=== PATIENT | female | born 1975 | race African-American/Black ===

== ENCOUNTER 2020-03-29 18:33 | Observation (INO) | payer OTHER ==
[2020-03-29 18:59] LABS: Absolute Lymphocytes (CBC) 2.6 K/uL (0.7-4.9); Basophils % 1.3 % (0-1.3); Hematocrit 39.5 % (36.0-45.0); MPV 8.1 fL (7.6-11.3); RBC Red Blood Cell Count 4.59 M/uL (3.86-4.86)
[2020-03-29 19:04] LABS: Protime INR 0.99
--- NOTE | 2020-03-29 19:04 | RAD REPORT ---
EXAM DESCRIPTION: CT - Ct Stroke Brain Wo Cont - 03/29/2020 6:54 pm CLINICAL HISTORY: Confused;Syncope Headache, drowsiness, CVA symptomology COMPARISON: No comparisons TECHNIQUE: All CT scans are performed using dose optimization technique as appropriate and may inclu de automated exposure control or mA/KV adjustment according to patient size. FINDINGS: No intracranial hemorrhage, hydrocephalus or extra-axial fluid collection.No areas of brai n edema or evidence of midline shift. The paranasal sinuses and mastoids are clear. The calvarium is intact. IMPRESSION: No acute intracranial abnormality. The findings were discussed with Rebecca in the ER On 03/29/2020 at 6:58 p.m. by telephone.
--- NOTE | 2020-03-29 19:09 | RAD REPORT ---
EXAM DESCRIPTION: RAD - Chest Single View - 03/29/2020 7:01 pm CLINICAL HISTORY: CHEST PAIN Chest pain. COMPARISON: No comparisons FINDINGS: Portable technique limits examination quality. Bilateral interstitial prominence is present which could indicate interstitial pneumonitis/bronchitis . The heart is normal in size. No displaced fractures.
[2020-03-29 19:11] LABS: Potassium 3.3 mmol/L (3.5-5.1)
[2020-03-29] MEDS ORDERED: LABETALOL HCL 100 MG/20 ML ONE (19:13)
[2020-03-29] MEDS ORDERED: THIAMINE 200 MG/2 ML INJ ONE (19:13)
[2020-03-29] MEDS ORDERED: FOLIC ACID 5 MG/ML VIAL ONE (19:14)
[2020-03-29] MEDS ORDERED: NA CHLORIDE 0.9% 1,000 ML ONE (19:14)
--- NOTE | 2020-03-29 20:04 | RAD REPORT ---
EXAM DESCRIPTION: CT - Head angio - 03/29/2020 7:52 pm CLINICAL HISTORY: Headache;Syncope Headache, drowsiness, CVA COMPARISON: Ct Stroke Brain Wo Cont dated 03/29/2020 TECHNIQUE: CT angiography of the head was performed with MIPs. All CT scans are performed using dose optimization technique as appropriate and may include automated exposure control or mA/KV adjustment according to patient size. FINDINGS: No evidence of aneurysm is detected. No flow-limiting stenosis or vascular malformation id entified. Antegrade flow is seen in the vertebral arteries. The vertebral arteries are codominant. The visualized dural venous sinuses are patent. IMPRESSION: No significant flow abnormality is detected.
--- NOTE | 2020-03-29 20:27 | ER ---
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 Upon arrival pt was unresponsive in passenger seat, diaphoretic, eyes rolling back in her head. Hx of breast CA/. 18:35 Coronavirus screen: At this time, the client does not indicate any symptoms associated ss with coronavirus-19. Ebola Screen: No symptoms or risks identified at this time. Risk Assessment: Do you want to hurt yourself or someone else? Unable to obtain. Onset of symptoms was March 29, 2020. 18:35 Method Of Arrival: Carried ss 18:38 Acuity: JAYDEN 1 ll1 19:01 Initial Sepsis Screen: Does the patient meet any 2 criteria? Altered Mental Status. No. ss Patient's initial sepsis screen is negative. Does the patient have a suspected source of infection? No. Patient's initial sepsis screen is negative. Historical: - Allergies: 18:57 Dilaudid; ss 18:57 Heparin; ss - PMHx: 18:57 BREAST CA; SARCOIDOSIS; Hypertension; ss - Immunization history:: Adult Immunizations up to date. - Family history:: not pertinent. - Social history:: Smoking status: Patient denies any tobacco usage or history of. Screenin:00 Abuse screen: Denies threats or abuse. Denies injuries from another. Nutritional ss screening: No deficits noted. Tuberculosis screening: No symptoms or risk factors identified. Fall Risk Total Madsen Fall Scale indicates High Risk Score (45 or more points). Fall prevention measures have been instituted. Side Rails Up X 2 Frequent Obs/Assessments Occuring Family Present and informed to notify staff if the need to leave the bedside As available patient and family educated on Fall Prevention Program and Strategies. Assessment: 18:33 Reassessment: DR RODRIGUEZ AT BEDSIDE. ss 18:37 Reassessment: CODE STROKE CALLED, PT TO CT WANDER PALACIOS RN. ss 19:05 General: Appears ill, Behavior is drowsy. Pain: Complains of pain in head Pain ll1 currently is 9 out of 10 on a pain scale. Quality of pain is described as aching, throbbing, Pain began 1 day ago. Neuro: Level of Consciousness is awake, alert, obeys commands, Oriented to person, place, time, situation, Appropriate for age E Learning Manager are weak bilaterally Moves all extremities. Full function Gait is unsteady, Speech is normal, Reports headache a syncopal episode. Cardiovascular: Heart tones S1 S2 Capillary refill < 3 seconds Clubbing of nail beds is absent Patient's skin is warm and dry. Rhythm is regular. Respiratory: No deficits noted. GI: No deficits noted. Vital Signs: 18:37 BP 170 / 113; Pulse 74; Resp 14; Pulse Ox 93% on R/A; ss 18:55 BP 113 / 91; Pulse 79; Resp 16; Pulse Ox 92% on R/A; ss 19:30 BP 108 / 87; Pulse 89; Resp 18; Pulse Ox 100% on R/A; rv 20:30 BP 110 / 83; Pulse 84; Resp 17; Pulse Ox 100% on R/A; rv 21:30 BP 117 / 86; Pulse 93; Resp 18; Pulse Ox 100% ; rv Hollywood Coma Score: 18:46 Eye Response: spontaneous(4). Verbal Response: oriented(5). Motor Response: obeys antonio commands(6). Total: 15. NIH Stroke Scale Scores: 18:42 NIHSS Score: 0 antonio ED Course: 18:33 Patient arrived in ED. ds1 18:36 Inserted saline lock: 18 gauge in right EJ, using aseptic technique. ,using aseptic ss technique. BY DR RODRIGUEZ Blood collected. 18:38 Triage completed. ll1 18:39 Juan José Rodriguez MD is Attending Physician. antonio 18:54 CT Stroke Brain w/o Contrast In Process Unspecified. EDMS 18:56 Arm band placed on. ss 19:00 Patient has correct armband on for positive identification. Placed in gown. Bed in low ss position. Call light in reach. Side rails up X2. print operator on. Pulse ox on. NIBP on. 19:01 Stroke CXR 1 View In Process Unspecified. EDMS 19:39 Inserted saline lock: 20 gauge in left antecubital area, using aseptic technique. oe 19:52 CT Head Angio In Process Unspecified. EDMS 20:24 Angel Bee MD is Hospitalizing Provider. antonio 21:25 Ultrasound completed. Patient tolerated well. Notified SEPTIC TANK CLEANER/PA evelyn. sg3 21:28 Peewee Bocanegra, RN is Primary Nurse. rv 21:46 No provider procedures requiring assistance completed. IV is patent, with fluids rv infusing freely, with good blood return. 21:47 Patient admitted, IV remains in place. rv Administered Medications: 19:10 Drug: NS 0.9% 1000 ml Route: IV; Rate: 125 ml/hr; Site: right jugular; ll1 22:00 Follow up: IV Status: Infusion continued upon admission rv 19:10 Drug: foLIC Acid 1 mg Route: IVPB; Site: right jugular; ll1 22:00 Follow up: IV Status: Infusion continued upon admission rv 19:10 Drug: Thiamine 100 mg Route: IV; Rate: bolus; Site: right jugular; ll1 22:00 Follow up: IV Status: Infusion continued upon admission rv 19:10 Not Given (BP 108/87, HR 88): Trandate 20 mg IVP once; Over 2 minutes ll1 21:28 Drug: TORadol 30 mg Route: IVP; Site: right jugular; rv 22:00 Follow up: Response: No adverse reaction rv 21:29 Drug: Benadryl 50 mg Route: IVP; Site: right jugular; rv 22:00 Follow up: Response: No adverse reaction rv 21:29 Drug: Reglan 10 mg Route: IVP; Site: right jugular; rv 22:00 Follow up: Response: No adverse reaction rv 22:56 Not Given (NORMAL BLOOD PRESSURE): Norvasc 5 mg PO once rv Point of Care Testing: Blood Glucose: 18:37 Blood Glucose: 98 mg/dL; ss Ranges: Outcome: 20:26 Decision to Hospitalize by Provider. antonio 21:46 Admitted to Med/surg accompanied by tech, via stretcher, room 211, with chart, Report rv called to EVITA BURGOS 21:46 Condition: good 21:46 Instructed on the need for admit. 23:02 Patient left the ED. rv NIH Stroke Scale - NIH Stroke Score Date: 03/29/2020 Time: 18:42 Total Score = 0 1a. Level of Consciousness (LOC) - 0(Alert) 1b. Level of Consciousness (LOC) (Year \T\ Age) - 0(Both) 1c. LOC Commands (Open \T\ Closes Eyes/Certification Engineer) - 0(Both) 2. Best Gaze (Lateral Gaze Paresis) - 0(Normal) 3. Visual Field Loss - 0(No visual loss) 4. Facial Palsy - 0(Normal) 5a. Left Arm: Motor (10-second hold) - 0(No drift) 5b. Right Arm: Motor (10-second hold) - 0(No drift) 6a. Left Leg: Motor (5-second hold - always test supine) - 0(No drift) 6b. Right Leg: Motor (5-second hold - always test supine) - 0(No drift) 7. Limb Ataxia (finger/nose \T\ heel/valderrama - test with eyes open) - 0(Absent) 8. Sensory Loss (pinprick arms/legs/face) - 0(Normal) 9. Best Language: Aphasia (description/naming/reading) - 0(No aphasia) 10. Dysarthria (speech clarity - read or repeat words) - 0(Normal) 11. Extinction and Inattention (visual/tactile/auditory/spatial/personal) - 0(No abnormality) Initials: [facility] Signatures: Dispatcher [employer] EDJuan José Cardona MD MD cha Sanford, Demi ds1 Lois Osuna, AUBREY RN Maxi Spicer Sarah sg3 Peewee Bocanegra RN RN rv Lewis, Lynsay RN RN ll1 Corrections: (The following items were deleted from the chart) 18:55 18:54 Reassessment: CODE STROKE CALLED, PT TO CT WANDER PALACIOS RN [facility] 18:56 18:38 Inserted saline lock: 18 gauge in right EJ, using aseptic technique. ss ,using aseptic technique. BY DR RODRIGUEZ Blood collected.
--- NOTE | 2020-03-29 20:27 | EDPHYS ---
Physician Documentation [facility] Name: Haile Hale Age: 44 yrs Sex: Female : 1975 Arrival Date: 03/29/2020 Time: 18:33 Bed 4 Private MD: ED Physician Juan José Joyce HPI: 03/29 18:41 This 44 yrs old Black Female presents to ER via Unassigned with complaints of Syncope. antonio 18:41 The patient has experienced syncope, became unresponsive, collapsed. Onset: The antonio symptoms/episode began/occurred just prior to arrival. Duration: This was a single episode, that lasted 5 minute(s). Context: the episode(s) was witnessed, by family, . Associated injury: The patient did not suffer any apparent associated injury. Associated signs and symptoms: The patient has no apparent associated signs or symptoms. Current symptoms: decreased level of consciousness, is sleeping but easy to arouse. The patient has not experienced similar symptoms in the past. 18:42 The patient complains of pain to the top of head, forehead, left frontal area, left antonio side of the back of head, right frontal area and right side of the back of head. The patient describes the headache as constant. Onset: The symptoms/episode began/occurred just prior to arrival. ching that came on and got worse, then syncope, hx breast cancer and htn. Severity of symptoms: At its worst the pain was moderate, in the emergency department the pain is unchanged. Historical: - Allergies: 18:57 Dilaudid; ss 18:57 Heparin; ss - PMHx: 18:57 BREAST CA; SARCOIDOSIS; Hypertension; ss - Immunization history:: Adult Immunizations up to date. - Family history:: not pertinent. - Social history:: Smoking status: Patient denies any tobacco usage or history of. ROS: 18:42 Constitutional: Negative for fever, chills, and weight loss, Eyes: Negative for injury, antonio pain, redness, and discharge, ENT: Negative for injury, pain, and discharge, Neck: Negative for injury, pain, and swelling, Cardiovascular: Negative for chest pain, palpitations, and edema, Respiratory: Negative for shortness of breath, cough, wheezing, and pleuritic chest pain, Abdomen/GI: Negative for abdominal pain, nausea, vomiting, diarrhea, and constipation, Back: Negative for injury and pain, : Negative for injury, bleeding, discharge, and swelling, MS/Extremity: Negative for injury and deformity, Psych: Negative for depression, anxiety, suicide ideation, homicidal ideation, and hallucinations, Allergy/Immunology: Negative for hives, rash, and allergies, Endocrine: Negative for neck swelling, polydipsia, polyuria, polyphagia, and marked weight changes, Hematologic/Lymphatic: Negative for swollen nodes, abnormal bleeding, and unusual bruising. 18:42 Skin: Positive for diaphoresis. 18:42 Neuro: Positive for headache, syncope. Exam: 18:42 Constitutional: This is a well developed, well nourished patient who is awake, alert, antonio and in no acute distress. Head/Face: Normocephalic, atraumatic. Eyes: Pupils equal round and reactive to light, extra-ocular motions intact. Lids and lashes normal. Conjunctiva and sclera are non-icteric and not injected. Cornea within normal limits. Periorbital areas with no swelling, redness, or edema. ENT: Nares patent. No nasal discharge, no septal abnormalities noted. Tympanic membranes are normal and external auditory canals are clear. Oropharynx with no redness, swelling, or masses, exudates, or evidence of obstruction, uvula midline. Mucous membranes moist. Neck: Trachea midline, no thyromegaly or masses palpated, and no cervical lymphadenopathy. Supple, full range of motion without nuchal rigidity, or vertebral point tenderness. No Meningismus. Chest/axilla: Normal chest wall appearance and motion. Nontender with no deformity. No lesions are appreciated. Cardiovascular: Regular rate and rhythm with a normal S1 and S2. No gallops, murmurs, or rubs. Normal PMI, no JVD. No pulse deficits. Respiratory: Lungs have equal breath sounds bilaterally, clear to auscultation and percussion. No rales, rhonchi or wheezes noted. No increased work of breathing, no retractions or nasal flaring. Abdomen/GI: Soft, non-tender, with normal bowel sounds. No distension or tympany. No guarding or rebound. No evidence of tenderness throughout. Back: No spinal tenderness. No costovertebral tenderness. Full range of motion. Skin: Warm, dry with normal turgor. Normal color with no rashes, no lesions, and no evidence of cellulitis. MS/ Extremity: Pulses equal, no cyanosis. Neurovascular intact. Full, normal range of motion. Psych: Awake, alert, with orientation to person, place and time. Behavior, mood, and affect are within normal limits. 18:42 Neuro: Orientation: is normal, appropriate for stated age, no acute changes, Mentation: slow to respond, Memory: unable to test, Cranial nerves: grossly normal, is grossly normal based on the patient's age, no acute changes, Cerebellar function: is grossly normal, is grossly normal based on the patient's age, no acute changes, Motor: is grossly normal based on the patient's age, no acute changes, moves all fours, Sensation: no obvious gross deficits, appropriate no acute changes, Gait: not tested. seizure activity, is not displayed by the patient. 18:49 ECG was reviewed by the Attending Physician. [facility] Vital Signs: 18:37 BP 170 / 113; Pulse 74; Resp 14; Pulse Ox 93% on R/A; ss 18:55 BP 113 / 91; Pulse 79; Resp 16; Pulse Ox 92% on R/A; ss 19:30 BP 108 / 87; Pulse 89; Resp 18; Pulse Ox 100% on R/A; rv 20:30 BP 110 / 83; Pulse 84; Resp 17; Pulse Ox 100% on R/A; rv 21:30 BP 117 / 86; Pulse 93; Resp 18; Pulse Ox 100% ; rv NIH Stroke Scale Scores: 18:42 NIHSS Score: 0 antonio Ellis Coma Score: 18:46 Eye Response: spontaneous(4). Verbal Response: oriented(5). Motor Response: obeys [facility] commands(6). Total: 15. MDM: 18:46 Differential diagnosis: cluster headache, epidural hematoma, hyponatremia, antonio intracerebral hemorrhage, migraine, neoplasm, subarachnoid bleed, subdural hematoma, temporal arteritis, tension headache, traumatic injuries, trigeminal neuralgia. Differential Diagnosis altered mental status, sepsis. Differential Diagnosis: cardiac arrhythmia, idiopathic syncope, pseudo seizure, vasovagal episode. Data reviewed: vital signs, nurses notes, lab test result(s), EKG, radiologic studies. Data interpreted: monitor technician: rate is 77 beats/min, rhythm is regular, Pulse oximetry: on room air is 100 %. Test interpretation: by ED physician or midlevel provider: ECG, plain radiologic studies. Counseling: I had a detailed discussion with the patient and/or guardian regarding: the historical points, exam findings, and any diagnostic results supporting the discharge/admit diagnosis, the presence of at least one elevated blood pressure reading (>120/80) during this emergency department visit, lab results, radiology results, the need to transfer to another facility, for higher level of care, [facility] does not immediately have the required specialist. 18:49 Patient medically screened. [facility] 20:21 ED course: pain improved, nih 0,varun ramírez, obs , will see in the am. [facility] 20:29 Physician consultation: Samir Ramírez MD and will see patient in inpatient room, no antonio further test per desiree. 03/29 18:44 Order name: Basic Metabolic Panel; Complete Time: 20:12 03/29 18:44 Order name: CBC with Diff; Complete Time: 20:12 03/29 18:44 Order name: Protime (+inr); Complete Time: 20:12 03/29 18:44 Order name: Ptt, Activated; Complete Time: 20:12 03/29 18:44 Order name: CT Stroke Brain w/o Contrast; Complete Time: 20:12 03/29 18:44 Order name: Stroke CXR 1 View; Complete Time: 20:12 03/29 18:57 Order name: CT Head Angio; Complete Time: 20:12 [facility] 03/29 20:27 Order name: Sed Rate [facility] 03/29 18:39 Order name: Accucheck; Complete Time: 19:00 [facility] 03/29 18:39 Order name: Cardiac monitoring; Complete Time: 19:00 [facility] 03/29 18:39 Order name: EKG - Nurse/Tech; Complete Time: 19:00 [facility] 03/29 18:44 Order name: EKG; Complete Time: 18:45 03/29 20:27 Order name: US Carotid Artery Bilateral [facility] 03/29 20:31 Order name: CONS Physician Consult [facility] 03/29 21:32 Order name: US [facility] 03/29 18:39 Order name: IV Saline Lock; Complete Time: 18:53 [facility] 03/29 18:39 Order name: Labs collected and sent; Complete Time: 18:53 [facility] 03/29 18:39 Order name: NPO; Complete Time: 19:00 [facility] 03/29 18:39 Order name: O2 Per Protocol; Complete Time: 19:00 [facility] 03/29 18:39 Order name: O2 Sat Monitoring; Complete Time: 19:00 [facility] 03/29 18:39 Order name: Stroke Swallow Screen; Complete Time: 21:29 [facility] 03/29 18:41 Order name: Seizure Precautions; Complete Time: 21:29 antonio 03/29 20:21 Order name: Oxygen; Complete Time: 21:29 antonio EC:49 Rate is 77 beats/min. Rhythm is regular. QRS [place] is Normal. OH interval is normal. QRS antonio interval is normal. QT interval is normal. No Q waves. T waves are Normal. No ST changes noted. Clinical impression: LVH and No evidence of ischemia. Interpreted by me. Reviewed by me. Administered Medications: 19:10 Drug: NS 0.9% 1000 ml Route: IV; Rate: 125 ml/hr; Site: right jugular; ll1 22:00 Follow up: IV Status: Infusion continued upon admission rv 19:10 Drug: foLIC Acid 1 mg Route: IVPB; Site: right jugular; ll1 22:00 Follow up: IV Status: Infusion continued upon admission rv 19:10 Drug: Thiamine 100 mg Route: IV; Rate: bolus; Site: right jugular; ll1 22:00 Follow up: IV Status: Infusion continued upon admission rv 19:10 Not Given (BP 108/87, HR 88): Trandate 20 mg IVP once; Over 2 minutes ll1 21:28 Drug: TORadol 30 mg Route: IVP; Site: right jugular; rv 22:00 Follow up: Response: No adverse reaction rv 21:29 Drug: Benadryl 50 mg Route: IVP; Site: right jugular; rv 22:00 Follow up: Response: No adverse reaction rv 21:29 Drug: Reglan 10 mg Route: IVP; Site: right jugular; rv 22:00 Follow up: Response: No adverse reaction rv 22:56 Not Given (NORMAL BLOOD PRESSURE): Norvasc 5 mg PO once rv Point of Care Testing: Blood Glucose: 18:37 Blood Glucose: 98 mg/dL; ss Ranges: Critical Glucose Levels:Adult <50 mg/dl or >400 mg/dl <40 mg/dl or >180 mg/dl Disposition: 03/29/20 20:26 Hospitalization ordered by Angel Bee for Observation. Preliminary diagnosis are Headache, Essential (primary) hypertension, Migraine, Syncope and collapse, Sarcoidosis. - Bed requested for Telemetry/MedSurg (observation). - Status is Observation. rv - Condition is Stable. - Problem is new. - Symptoms have improved. NIH Stroke Scale - NIH Stroke Score Date: 03/29/2020 Time: 18:42 Total Score = 0 1a. Level of Consciousness (LOC) - 0(Alert) 1b. Level of Consciousness (LOC) (Year \T\ Age) - 0(Both) 1c. LOC Commands (Open \T\ Closes Eyes/Accountant Bookkeeper) - 0(Both) 2. Best Gaze (Lateral Gaze Paresis) - 0(Normal) 3. Visual Field Loss - 0(No visual loss) 4. Facial Palsy - 0(Normal) 5a. Left Arm: Motor (10-second hold) - 0(No drift) 5b. Right Arm: Motor (10-second hold) - 0(No drift) 6a. Left Leg: Motor (5-second hold - always test supine) - 0(No drift) 6b. Right Leg: Motor (5-second hold - always test supine) - 0(No drift) 7. Limb Ataxia (finger/nose \T\ heel/valderrama - test with eyes open) - 0(Absent) 8. Sensory Loss (pinprick arms/legs/face) - 0(Normal) 9. Best Language: Aphasia (description/naming/reading) - 0(No aphasia) 10. Dysarthria (speech clarity - read or repeat words) - 0(Normal) 11. Extinction and Inattention (visual/tactile/auditory/spatial/personal) - 0(No abnormality) Initials: antonio Signatures: Dispatcher [employer] EDMS Asiya Khoury RN RN mw Anderson, Corey, MD MD cha Smirch, Shelby, RN RN ss Peewee Bocanegra RN RN rv Lewis, Lynsay, RN RN ll1 Corrections: (The following items were deleted from the chart) 20:29 20:26 Hospitalization Ordered by Angel Bee MD for Observation. Preliminary antonio diagnosis is Headache; Essential (primary) hypertension; Migraine. Bed requested for Telemetry/MedSurg (observation). Status is Observation. Condition is Stable. Problem is new. Symptoms have improved. antonio 20:37 20:29 03/29/2020 20:26 Hospitalization Ordered by Angel Bee MD for mw Observation. Preliminary diagnosis is Headache; Essential (primary) hypertension; Migraine; Syncope and collapse; Sarcoidosis. Bed requested for Telemetry/MedSurg (observation). Status is Observation. Condition is Stable. Problem is new. Symptoms have improved. natonio 23:02 20:37 03/29/2020 20:26 Hospitalization Ordered by Angel Bee MD for rv Observation. Preliminary diagnosis is Headache; Essential (primary) hypertension; Migraine; Syncope and collapse; Sarcoidosis. Bed requested for Telemetry/MedSurg (observation). Status is Observation. Condition is Stable. Problem is new. Symptoms have improved. mw
[2020-03-29] MEDS ORDERED: METOCLOPRAMIDE 10 MG/2mL INJ ONE (21:02)
[2020-03-29] MEDS ORDERED: KETOROLAC 30 MG/ML INJ ONE (21:02)
[2020-03-29] MEDS ORDERED: DIPHENHYDRAMINE 50 MG/ML VIAL ONE (21:02)
--- NOTE | 2020-03-29 21:31 | RAD REPORT ---
EXAM DESCRIPTION: - CP - 03/29/2020 9:19 pm CLINICAL HISTORY: DIZZINESS Headache, drowsiness, dizziness. COMPARISON: No comparisons TECHNIQUE: Real-time sonographic evaluation of both carotid systems was performed. Doppler interroga tion was performed with waveform tracing bilaterally. FINDINGS: Normal high resistance waveforms are noted in both external carotid arteries. The common c arotid arteries and internal carotid arteries show normal low resistance waveforms. No significant plaque formation is seen. Peak systolic and end diastolic velocity values and the ICA/ CCA ratios are in the non-hemodynamically significant range. Antegrade flow seen in both vertebral arteries. IMPRESSION: No significant atherosclerotic changes noted. No evidence of a hemodynamically significant stenosis.
--- NOTE | 2020-03-29 22:08 | P.HP ---
Certification for Inpatient Patient admitted to: Observation With expected LOS: <2 Midnights Patient will require the following post-hospital care: None Practitioner: I am a practitioner with admitting privileges, knowledge of patient current condition, hospital course, and medical plan of care. Services: Services provided to patient in accordance with Admission requirements found in Title 42 Section 412.3 of the Code of Federal Regulations <Lalo Tapia - Last Filed: 03/29/20 22:02> Patient History Date of Service: 03/29/20 Reason for admission: Syncope/possible seizure History of Present Illness: 44-year-old female with a past medical history of sarcoidosis, essential hypertension and breast cancer status post mastectomy and breast reconstruction presents to the emergency room with complaints of syncope. Patient states she has never experienced symptoms like this before. States she be came disoriented slightly unresponsive and collapsed. Denies loss of consciousness or head trauma. Patient is complaining of pain at the top of the head the forehead the left frontal area left side of the back of the head, right frontal area and right side of the back of the head patient describes the headache is constant. They occurred prior to arrival to the ED. Patient states she started with a headache that came on and got worse then had a syncopal event. In the emergency room patient is alert and oriented x3. She is in no distress. Still has the headache/neck pain as described above. Patient's lab work is overall unremarkable except for creatinine which is slightly elevated at 1.4. Patient does not have a history of renal disease. CT of the brain shows no acute abnormality, chest x-ray shows possible interstitial pneumonitis/bronchitis the patient has a history of sarcoidosis. CTA of the head is negative for any flow abnormality. An carotid Doppler shows no significant arterial stenosis. Neur ologic exam is fairly unremarkable. Patient is not displaying any seizure-like activity at this time. Vitals are stable but was noted to have a slightly elevated blood pressure 170/113 on arrival to ED. Patient will be placed in observation and further evaluated. Neurology consulted. Home medications list reviewed: Yes - Past Medical/Surgical History Diabetic: No -: Bilateral breasts cancer -: Sarcoidosis -: Essential hypertension -: Bilateral mastectomy -: Breast reconstruction -: Hysterectomy Psychosocial/ Personal History: Lives in [place] with and children. - Family History Family History: Reviewed- Non-Contributory - Social History Smoking Status: Never smoker Alcohol use: No CD- Drugs: No Caffeine use: No Place of Residence: Home <Lalo Tapia - Last Filed: 03/29/20 22:02> Date of Service: 03/30/20 <ursula mcdermott - Last Filed: 03/30/20 17:52> Allergies heparin Allergy (Verified 03/29/20 23:56) Shortness of breath hydromorphone [From Dilaudid] Allergy (Verified 03/29/20 23:56) Itching/Hives/Rash Review of Systems General: As per HPI Eyes: Unremarkable ENT: Unremarkable Respiratory: Unremarkable Cardiovascular: Unremarkable Gastrointestinal: Unremarkable Genitourinary: Unremarkable Musculoskeletal: Neck Pain (Right and left side), Other Integumentary: Unremarkable Neurological: As per HPI Lymphatics: Unremarkable <LyndamorroLalo - Last Filed: 03/29/20 22:02> Physical Examination - Vital Signs Blood Pressure: 113/91 Pulse: 79 Respirations: 16 Pulse Ox (%): 93 (RA) - Physical Exam General: Alert, In no apparent distress, Oriented x3 HEENT: Atraumatic, Normocephalic, PERRLA, Mucous membr. moist/pink Neck: Supple, No Thyromegaly, Other (Trachea midline) Respiratory: Clear to auscultation bilaterally, Normal air movement Cardiovascular: No edema, Normal pulses, Regular rate/rhythm Capillary refill: <2 Seconds Gastrointestinal: Normal bowel sounds, Soft and benign, Non-distended Musculoskeletal: No clubbing, No swelling, No contractures, No erythema Integumentary: No rashes, No breakdown, No significant lesion, No tenderness/swelling, No erythema Neurological: Normal speech, Normal strength at 5/5 x4 extr, Normal tone, Sensation intact, Cranial nerves 3-12 intact - Studies Laboratory Data (last 24 hrs) 03/29/20 18:41: PT 11.7, INR 0.99, APTT 26.6 03/29/20 18:41: WBC 5.0, Hgb 13.4, Hct 39.5, Plt Count 321 03/29/20 18:41: Sodium 141, Potassium 3.3 L, BUN 16, Creatinine 1.43 H, Glucose 104 <Lalo Tapia - Last Filed: 03/29/20 22:02> - Studies Laboratory Data (last 24 hrs) 03/29/20 18:41: PT 11.7, INR 0.99, APTT 26.6 03/29/20 18:41: WBC 5.0, Hgb 13.4, Hct 39.5, Plt Count 321 03/29/20 18:41: Sodium 141, Potassium 3.3 L, BUN 16, Creatinine 1.43 H, Glucose 104 <ursula mcdermott - Last Filed: 03/30/20 17:52> Assessment and Plan - Plan Impression: Syncope complicated by persistent headache like symptoms: Essential hypertension: History of sarcoidosis: History of bilateral breast mastectomy with breast reconstruction: Plan: Syncope complicated by persistent headache like symptoms: Continue gentle IV hydration. Neurology consulted Dr. Escalona. Place on continuous telemetry. Monitor. Essential hypertension: Monitor blood pressure. Will order hydralazine 10 mg q.4 hr p.r.n. for systolic blood pressure greater than 160 and diastolic blood pressure greater than 100. Will resume home medications once verified. History of sarcoidosis: Stable. Patient does not use home oxygen. History of bilateral breast mastectomy with breast reconstruction: In remission. Discharge Plan: Home Plan to discharge in: 48 Hours - Advance Directives Does patient have a Living Will: No Does patient have a Durable POA for Healthcare: No - Code Status/Comfort Care Code Status Assessed: Yes Time Spent Managing Pts Care (In Minutes): 55 <Lalo Tapia - Last Filed: 03/29/20 22:02> Physician Review: Patient Assessed, Agree with Above Assessment and Plan Physician Review Additional Text: Syncope Migraine headache. Plan: Patient is currently normotensive Rule out acute CVA with MRI of the brain. Neurology consult is pending. Neurochecks. Pain control. <ursula mcdermott - Last Filed: 03/30/20 17:52>
[2020-03-29] MEDS ORDERED: ACETAMINOPHEN 500 MG TAB PO PRN (22:22)
[2020-03-29] MEDS ORDERED: POTASSIUM CL SA 10 MEQ TAB PO ONE (22:30)
[2020-03-29] MEDS: NA CHLORIDE 0.9% 1,000 ML IV SCH (23:00)
[2020-03-29] MEDS ORDERED: HYDROCODONE/APAP 7.5/325 MG TAB PO PRN (23:38)
[2020-03-29 23:45] VITALS: BMI 25.7
[2020-03-30] MEDS: NAPROXEN 250 MG TAB PO PRN ×2 (00:06→09:29)
[2020-03-30] MEDS ORDERED: HEPARIN 5000 UNIT/ML 1 ML VIAL SQ SCH (01:00)
[2020-03-30 05:02] LABS: Urine Appearance CLEAR; Urine Bilirubin NEGATIVE (NEG); Urine Blood NEGATIVE (NEG); Urine Color YELLOW; Urine Glucose NEGATIVE (NEG); Urine Protein NEGATIVE (NEG); Urine Specific Gravity >=1.030 (1.005-1.030); Urine Urobilinogen 0.2 mg/dL (0.2-1.0); Urine pH 5.5 (5.0-7.0)
[2020-03-30 05:15] LABS: Urine Microscopic Reflex ORDER UMIC
[2020-03-30 05:51] LABS: Urine Bacteria >50 /HPF (<20); Urine Culture Reflex Order REFLEXED; Urine RBC NONE SEEN /HPF (NONE SEEN)
[2020-03-30 06:47] LABS: Absolute Lymphocytes (CBC) 1.4 K/uL (0.7-4.9); Basophils % 0.8 % (0-1.3); Hematocrit 33.6 % (36.0-45.0); Lymphocytes % 30.9 % (15.3-44.8); MPV 8.3 fL (7.6-11.3)
[2020-03-30 07:01] LABS: Albumin 3.5 g/dL (3.4-5.0); Bilirubin Total 0.3 mg/dL (0.2-1.0); Potassium 3.9 mmol/L (3.5-5.1); Protein, Total 7.1 g/dL (6.4-8.2)
[2020-03-30] MEDS ORDERED: POTASSIUM CL SA 10 MEQ TAB PO ONE (07:45)
[2020-03-30] MEDS: NA CHLORIDE 0.9% 1,000 ML IV SCH ×3 (09:00→18:01)
[2020-03-30] MEDS ORDERED: ENOXAPARIN 40 MG/0.4 ML SQ SCH (09:00)
[2020-03-30 10:37] VITALS: O2SAT 99
[2020-03-30] MEDS ORDERED: ASPIRIN 81 MG CHEWABLE TABLET ONE (11:42)
--- NOTE | 2020-03-30 13:47 | RAD REPORT ---
EXAM DESCRIPTION: MRI - Brain W/Wo Cont - 03/30/2020 1:29 pm CLINICAL HISTORY: pain, headache Headache, drowsiness, history of breast carcinoma. COMPARISON: Head angio dated 03/29/2020 TECHNIQUE: Multi-sequence, multiplanar MR imaging of the brain was performed with contrast. FINDINGS: No intracranial hemorrhage, hydrocephalus, or extra-axial fluid collection. No edema or sh ift of midline structures. No intracranial mass. DWI is negative for acute CVA. The midline structures are normally formed. Mastoid air cells and paranasal sinuses are clear. Post-contrast images show no abnormal enhancement to suggest tumor or infection. IMPRESSION: No acute or concerning intracranial abnormalities. No pathologic post-contrast enhancement suspected.
[2020-03-30] MEDS ORDERED: SUMATRIPTAN SUCCI 50 MG TAB PO PRN (15:04)
[2020-03-30] MEDS ORDERED: ACETAMIN/CAFFEINE/BUTALB TAB PO PRN (15:04)
[2020-03-30 17:21] VITALS: BP 147/95
--- NOTE | 2020-03-30 17:58 | P.DS ---
Admission Date: 03/29/20 Discharge Date: 03/30/20 Disposition: ROUTINE DISCHARGE Discharge Condition: FAIR Reason for Admission: Syncope/possible seizure Brief History of Present Illness: 44-year-old woman with a history of sarcoidosis, migraine headaches, hypertension, breast cancer status post mastectomy, reconstructed surgery and chemotherapy was brought to the emergency department because transient disorientation and collapse. Patient was also complaining of headache and nausea. Her systolic blood pressure in the ED was elevated to 170. There was a concern for syncopal episode. Patient was placed under observation for further evaluation. Hospital Course: Patient placed under observation on the medical floor. She continued to have intractable headache associated with nausea. Headache was managed with and set and later Fioricet. Patient declined to use opioids. No seizures witnessed. MRI of the brain was performed which did not show any acute disease. Patient desires to go home and does not want to spend another night here. Case discussed with neurology, patient deemed clinically stable for dicharge. Dr. Jessica want to follow with her as an outpatient within a week or 2. The [place] stated she was visiting from [place], [place] and she will book an appointment with a neurologist when she gets home. Vital Signs/Physical Exam: Temp Pulse Resp BP Pulse Ox 97.4 F 74 18 147/95 H 100 03/30/20 12:00 03/30/20 12:00 03/30/20 12:00 03/30/20 17:20 03/30/20 12:00 General: Alert, In no apparent distress HEENT: Mucous membr. moist/pink Neck: Supple, 2+ carotid pulse no bruit, JVD not distended Respiratory: Clear to auscultation bilaterally, Normal air movement Cardiovascular: No edema, Regular rate/rhythm, Normal S1 S2 Capillary refill: <2 Seconds Gastrointestinal: Normal bowel sounds, Soft and benign, No tenderness Musculoskeletal: No swelling Integumentary: No rashes Neurological: Normal gait, Normal speech, Normal strength at 5/5 x4 extr Laboratory Data at Discharge: WBC 4.5 K/uL (4.3-10.9) 03/30/20 06:38 Hgb 11.4 g/dL (12.0-15.0) L 03/30/20 06:38 Hct 33.6 % (36.0-45.0) L 03/30/20 06:38 Plt Count 199 K/uL (152-406) D 03/30/20 06:38 PT 11.7 SECONDS (9.5-12.5) 03/29/20 18:41 INR 0.99 03/29/20 18:41 APTT 26.6 SECONDS (24.3-36.9) 03/29/20 18:41 Sodium 142 mmol/L (136-145) 03/30/20 06:38 Potassium 3.9 mmol/L (3.5-5.1) 03/30/20 06:38 BUN 15 mg/dL (7-18) 03/30/20 06:38 Creatinine 1.09 mg/dL (0.55-1.3) 03/30/20 06:38 Glucose 85 mg/dL (74-106) 03/30/20 06:38 Magnesium 2.0 mg/dL (1.8-2.4) 03/30/20 06:38 Total Bilirubin 0.3 mg/dL (0.2-1.0) 03/30/20 06:38 AST 16 U/L (15-37) 03/30/20 06:38 ALT 24 U/L (12-78) 03/30/20 06:38 Alkaline Phosphatase 74 U/L (45-117) 03/30/20 06:38 Home Medications: Cholecalciferol (Vitamin D3) [Vitamin D 1000 Iu Tab*] 1,000 unit PO DAILY 03/29/20 Cyanocobalamin (Vitamin B-12) [Vitamin B12] 2,500 mcg PO DAILY 03/29/20 hydroCHLOROthiazide [Hydrochlorothiazide*] 12.5 mg PO DAILY 03/29/20 Acetam/Caff/Butal [Fioricet*] 1 tab PO Q6H PRN #30 tab 03/30/20 Topiramate [Topamax] 25 mg PO BEDTIME #30 tab 03/30/20 New Medications: Acetam/Caff/Butal [Fioricet*] 1 tab PO Q6H PRN #30 tab PRN Reason: Pain Scale 5-7 (Moderate) Topiramate [Topamax] 25 mg PO BEDTIME #30 tab Diet: Regular Activity: Ad yuly Followup: Samir Jessica MD [ASSOCIATE-ACTIVE - CAN ADMIT] - 1 Week
[2020-03-30 18:24] VITALS: TEMP 97.9
[2020-03-31] MEDS ORDERED: CYANOCOBALAMIN 1,000 MCG TAB PO SCH (09:00)
[2020-03-31] MEDS ORDERED: ASPIRIN EC 81 MG TAB PO SCH (09:00)
[2020-03-31] MEDS ORDERED: VITAMIN D 1000 UNIT TAB PO SCH (09:00)
[2020-03-31] MEDS ORDERED: hydroCHLOROthiazide 12.5 MG CAP PO SCH (09:00)
--- NOTE | 2020-03-31 11:24 | ECHO ---
HEIGHT: 5 ft 10 in WEIGHT: 179 lb 0 oz DATE OF STUDY: 03/30/[address]: Lalo Tapia 2-DIMENSIONAL: YES M.MODE: YES DOPPLER: YES COLOR FLOW: YES TDS: NO PORTABLE: NO DEFINITY: NO BUBBLE STUDY: NO DIAGNOSIS: SYNCOPE CARDIAC HISTORY: CATHERIZATION: NO SURGERY: NO PROSTHETIC VALVE: NO PACEMAKER: NO MEASUREMENTS (cm) DIASTOLIC (NORMALS) SYSTOLIC (NORMALS) IVSd 0.9 (0.6-1.2) LA Diam 2.3 (1.9-4.0) LVEF 51% LVIDd 3.9 (3.5-5.7) LVIDs 2.9 (2.0-3.5) %FS 26% LVPWd 1.0 (0.6-1.2) Ao Diam 2.8 (2.0-3.7) 2 DIMENSIONAL ASSESSMENT: RIGHT ATRIUM: NORMAL LEFT ATRIUM: NORMAL RIGHT VENTRICLE: NORMAL LEFT VENTRICLE: NORMAL TRICUSPID VALVE: NORMAL MITRAL VALVE: NORMAL PULMONIC VALVE: NORMAL AORTIC VALVE: NORMAL PERICARDIAL EFFUSION: NONE AORTIC ROOT: NORMAL LEFT VENTRICULAR WALL MOTION: NORMAL DOPPLER/COLOR FLOW: NORMAL COMMENTS: NORMAL LEFT VENTRICULAR EJECTION FRACTION 55-60% WITH NORMAL WALL MOTION. NORMAL DIASTOLIC FUNCTION. TECHNOLOGIST: Luis AGUDELO
== END 2020-03-30 19:30 | disposition home or self-care (01) ==
LOC: ER 18:33 → ERHOLD 21:09 → 2ND 21:49
PROVIDERS: ADMIT Physician Assistant; ATTEND Internal Medicine
DX: R55 Syncope and collapse (principal); D86.9 Sarcoidosis, unspecified; G43.819 Other migraine, intractable, without status migrainosus; I10 Essential (primary) hypertension; R29.700 NIHSS score 0; Z20.828 Contact with and (suspected) exposure to other viral communicable diseases; Z85.3 Personal history of malignant neoplasm of breast; Z90.13 Acquired absence of bilateral breasts and nipples; Z88.6 Allergy status to analgesic agent; Z88.8 Allergy status to other drugs, medicaments and biological substances
CPT/HCPCS: 96365; 96368; 93005; 93306; 87088; 85025 ×2; 87086; 80048; 36415 ×2; 83735; 85610; 82947; 85730; 85652; 87077; 87186; 80053; 70496; 70450; 71045; 93880; 70553; 96375; 99291; 99292; 96366; U0002; Q9967; A9577; J2765; J3411; J1200; J1650; J7030 ×3; G0378 ×2; 81003; 81015